=== PATIENT | female | born 1995 | race Two or more races ===

== ENCOUNTER 2022-01-29 08:42 | Emergency (ER) | payer OTHER ==
[~2022-01-29] VITALS: Ht 160 cm; Wt 86.2 kg
[2022-01-29] MEDS ORDERED: METOCLOPRAMIDE10 M1 PO (18:27)
== END 2022-01-29 18:42 | disposition home or self-care (01) ==
LOC: ER 08:42
DX: O21.0 Mild hyperemesis gravidarum (principal); Z3A.24 24 weeks gestation of pregnancy